=== PATIENT | male | born 1995 | race Asian ===

== ENCOUNTER 2017-01-02 12:05 | Emergency (ER) | payer MEDICAID ==
[2017-01-02 12:18] VITALS: BP 112/57; PULSE 79; RESP 18; TEMP 97.5; O2SAT 95
--- NOTE | 2017-01-02 12:36 | DX ---
Left Clavicle, Two Views Reason for examination: Pain following trauma. Findings: There is a comminuted, displaced and minimally angulated midshaft left clavicular fracture. No other fracture is seen. There is equivocal widening of the left AC joint. Impression: Displaced, comminuted and mildly angulated midshaft left clavicular fracture with equivoc al widening of the left AC joint.
--- NOTE | 2017-01-02 12:55 | EDPHY ---
H & P Time Seen by Provider: 01/02/17 12:43 HPI/ROS: CHIEF COMPLAINT: Left shoulder pain HISTORY OF PRESENT ILLNESS: 21-year-old male presents emergency department after he fell off his skateboard onto his left shoulder. Patient denies head strike, no loss of consciousness, no neck pain. He denies chest or abdominal pain. Pain with movement of this left arm, no previous injury to this arm, no numbness or tingling in this arm. Patient is [id number]. REVIEW OF SYSTEMS: A comprehensive 10 point review of systems is otherwise negative aside from elements mentioned in the history of present illness. Smoking Status: Never smoked Physical Exam: GEN: Awake, alert, oriented, no acute distress RESP: nl resp effort MSK: No C-spine tenderness to palpation, left clavicle with obvious deformity, tenderness to palpation, swelling, no skin tenting, superficial abrasion to posterior left shoulder, full range of motion of left elbow, sensation intact to light touch, normal deltoid sensation SKIN: Superficial abrasion to posterior left shoulder Constitutional: Initial Vital Signs Temperature (C) 36.4 C 01/02/17 12:16 Heart Rate 79 01/02/17 12:16 Respiratory Rate 18 01/02/17 12:16 Blood Pressure 112/57 L 01/02/17 12:16 O2 Sat (%) 95 01/02/17 12:16 O2 Delivery Mode Room Air Allergies/Adverse Reactions: No Known Allergies Allergy (Unverified 01/02/17 12:15) Home Medications: Medication Instructions Recorded oxyCODONE/APAP 5/325 [Percocet 1 - 2 tab PO Q6H PRN #20 tab 01/02/17 5/325] MDM/Departure - MDM Diagnostics: Left clavicle x-ray independently reviewed by me- Impression: Displaced, comminuted and mildly angulated midshaft left clavicular fracture with equivocal widening of the left AC joint. Dictated By: Compa Cardenas MD ED Course/Re-evaluation: Abrasion to posterior left shoulder cleaned, antibiotic ointment and Band-Aid placed. I placed a sling on this patient's left arm. I reviewed his discharge instructions and have given him a prescription for Percocet. Patient was given 1 ibuprofen and 1 Percocet prior to discharge. He has no questions, is given return precautions for neurovascular compromise. - Depart Disposition: Home, Routine, Self-Care Clinical Impression: Closed left clavicular fracture Qualifiers: Encounter type: initial encounter Clavicle location: shaft Fracture alignment: displaced Qualifier Code: (S42.022A) Displaced fracture of shaft of left clavicle, initial encounter for closed fracture Condition: Good Instructions: Clavicle Fracture (ED) Additional Instructions: Rest, ice, take 600mg of ibuprofen every 8 hours with food for 3-5 days as needed for pain. Wear sling for comfort. Take Percocet for severe pain. Follow up with orthopedist in the next 5 days. Return to the emergency department for any numbness, tingling, discoloration of you limb or other concerns. You have been prescribed a narcotic. This can cause drowsiness. Do not drive or operate any machinery while taking this. This can also cause constipation. Drink plenty of water, eat fiber and take stool softeners over the counter as needed. Prescriptions: oxyCODONE/APAP 5/325 [Percocet 5/325] 1 - 2 tab PO Q6H PRN #20 tab PRN Reason: Pain, Severe Referrals: Margie Ruvalcaba MD [Medical Doctor] - As per Instructions (Orthopedist on- call)
[2017-01-02] MEDS ORDERED: OXYCODONE/APAP 5/325 TAB PO ONE (13:04)
[2017-01-02] MEDS ORDERED: IBUPROFEN 600 MG TAB PO ONE (13:04)
== END 2017-01-02 13:28 | disposition home or self-care (01) ==
DX: S42.022A Displaced fracture of shaft of left clavicle, initial encounter for closed fracture (principal); V00.131A Fall from skateboard, initial encounter; Y99.8 Other external cause status; Y93.51 Activity, roller skating (inline) and skateboarding
CPT/HCPCS: A4565

== ENCOUNTER 2017-01-09 11:19 | Day surgery (SDC) | payer MEDICAID ==
[2017-01-09] MEDS ORDERED: LIDOCAINE 1% 5 ML SDV ID PRN (11:41)
[2017-01-09] MEDS ORDERED: LR 1,000 ML IV ONE (11:41)
[2017-01-09] MEDS ORDERED: BUPIVACAINE/EPI 0.5% 30 ML SDV ONE (12:14)
[2017-01-09] MEDS ORDERED: SKIN ADHESIVE (DERMABOND) 1 EACH TP ONE (12:14)
[2017-01-09] MEDS ORDERED: CEFAZOLIN 2 GM/DEXTROSE/100 ML BAG IV ONE (12:50)
[2017-01-09] MEDS ORDERED: MIDAZOLAM 2 MG/2 ML VIAL ONE (13:05)
[2017-01-09] MEDS ORDERED: fentaNYL 250 MCG/5 ML INJ ONE (13:19)
[2017-01-09] MEDS ORDERED: PROPOFOL 200 MG/20 ML VIAL ONE (13:20)
[2017-01-09] MEDS ORDERED: ceFAZolin 2 GM/DEXTROSE 100 ML IV ONE (13:30)
[2017-01-09] MEDS ORDERED: DEXAMETHASONE 4 MG/ML VIAL ONE (15:05)
[2017-01-09] MEDS ORDERED: LIDOCAINE 2% 5 ML SDV ONE (15:05)
[2017-01-09] MEDS ORDERED: fentaNYL 100 MCG/2 ML INJ ONE (15:32)
--- NOTE | 2017-01-09 15:36 | GOP ---
[f rep st] OPERATIVE REPORT DATE OF OPERATION: 01/09/2017 SURGEON: Kimo Sifuentes MD ELECTRONIC TESTER: None. Blood loss 5 mL. ANESTHESIA: General. PREOPERATIVE DIAGNOSIS: Left clavicle fracture. POSTOPERATIVE DIAGNOSIS: Left clavicle fracture. PROCEDURE PERFORMED: Open reduction, internal fixation left clavicle fracture. FINDINGS: Fracture comminution. SPECIMENS: None. INDICATIONS: This is a 21-year-old male who sustained a comminuted displaced clavicle fracture with tenting of the skin. Counseled risks and benefits of nonoperative treatment versus operative treatment. Informed consent was obtained. All questions were answered. Marked preoperatively. He was taken to the operative suite. Anesthesia was induced. He was positioned in a beach chair, sterilely prepped and draped in normal fashion. Bony prominences were padded. A time-out was performed verifying the site, side , location, with agreement of the team. 0.5% Marcaine with epinephrine was introduced into the skin. We made a skin incision over the clavicle and dissected down to the clavicle. This was quite comminuted and displaced. I was able to expose and mobilize the fracture fragments. I was able to pull this out to length and obtained visual reduction. Selected a distal plate given the location of the fracture and contoured this. I was then able to place the plate over the bone and held the reduction, and then I used a cortical screw distally to help bring this fragment up to the plate and affect the reduction even greater. Then, placed a cortical screw proximally to bring the bone to the plate. I checked x-rays, checked the length and rotational alignment, and I felt this was in good position. I put locking screws distally and a combination of locking and nonlocking screws proximally. I took this through range of motion it was stable. This was irrigated and closed with 0 Vicryl, 2-0 Vicryl, 3-0 Monocryl and Dermabond, was placed in a sterile dressing and taken to PACU in stable condition. DESCRIPTION OF PROCEDURE: IMPLANTS: Synthes distal clavicle plate with locking and nonlocking screws. COMPLICATIONS: None. DRAINS: None. CONDITION: Stable. /[id number]/MODL MTDD
== END 2017-01-09 17:05 | disposition home or self-care (01) ==
LOC: FSGY 11:19
PROVIDERS: ATTEND Orthopaedic Surgery
PROC: 0PSB04Z Reposition Left Clavicle with Internal Fixation Device, Open Approach (ICD-10-PCS; principal; 2017-01-09 13:00)
DX: S42.022A Displaced fracture of shaft of left clavicle, initial encounter for closed fracture (principal); V00.131A Fall from skateboard, initial encounter; Y93.51 Activity, roller skating (inline) and skateboarding
CPT/HCPCS: 23515; C1769; C1713; J0690; J1100; J2250; J2704; J3010

== ENCOUNTER 2019-03-07 15:18 | Emergency (ER) | payer MEDICAID ==
[2019-03-07] MEDS ORDERED: ASPIRIN 81 MG CHEWABLE TAB PO ONE (15:47)
--- NOTE | 2019-03-07 15:47 | EDPHY ---
H & P Time Seen by Provider: 03/07/19 15:32 HPI/ROS: CHIEF COMPLAINT: Chest pain, shortness of breath HISTORY OF PRESENT ILLNESS: Patient is a 22-year-old male presents emergency department with multiple complaints. The patient states he developed shortness of breath 2-3 days ago. Today he was walking at school when he felt suddenly fatigue. He also describes chest pressure. He describes mild left arm discomfort. He also had pain on his posterior calf bilaterally. All his symptoms have resolved at this point. Patient states he did lift weights yesterday and and the leg pain could be related to his exercise. He has had no recent travel. No family history of clots or coronary disease. REVIEW OF SYSTEMS: 10 systems were reveiwed and are negative with the exception of the elements mentioned in the history of present illness. Past Medical/Surgical History: Negative Past surgical history: Denies Social history: Patient is a student. He does not smoke. He denies drugs or alcohol. Smoking Status: Never smoked Physical Exam: Vitals noted GENERAL: Well-appearing, in no acute distress, alert. HEENT: Eyes normal to inspection, normal pharynx, no signs of dehydration. NECK: Normal, supple. RESPIRATORY: Clear to auscultation bilaterally, no rales, rhonchi or wheezing. CVS: Regular rate and rhythm, no rubs, murmurs, or gallops. ABDOMEN: Soft, nontender, nondistended, no organomegaly. BACK: Normal to inspection, no CVA tenderness. SKIN: Normal color, no rash, warm, dry. No pallor. EXTREMITIES: No pedal edema, no calf tenderness, no Homans sign or cords, no joint swelling. NEURO/PSYCH: Alert and oriented, normal mood and affect, normal motor sensory exam. Constitutional: Initial Vital Signs Temperature (C) 36.6 C 03/07/19 15:20 Heart Rate 84 03/07/19 15:20 Respiratory Rate 14 03/07/19 15:20 Blood Pressure 120/56 L 03/07/19 15:20 O2 Sat (%) 100 03/07/19 15:20 O2 Delivery Mode Room Air Allergies/Adverse Reactions: No Known Allergies Allergy (Unverified 01/02/17 12:15) Home Medications: Medication Instructions Recorded oxyCODONE/APAP 5/325 [Percocet 1 - 2 tab PO Q6H PRN #20 tab 02/10/17 5/325] Medical Decision Making - Diagnostics Imaging Results: Imaging Impressions Chest X-Ray 03/07/19 15:47 Impression: No acute pulmonary disease. ED Course/Re-evaluation: In the emergency department I discussed possible etiologies with the patient. I answered all his questions. IV was placed. Laboratory studies EKG and chest x-ray were obtained. Patient was having no symptoms in the emergency department EKG shows normal sinus rhythm, normal rate, normal axis, normal intervals. ST elevation, early repol Patient's CBC and chemistry unremarkable. Troponin is negative. D-dimer is negative. Chest x-ray: No acute disease I rechecked the patient. He is chest pain-free with no complaints. I discussed all results with the patient. I feel he was safe for discharge. I gave the patient warnings prior to leaving. Will return with worsening symptoms. Differential Diagnosis: My differential includes but is not limited to ACS, acute NM, dissection, aneurysm, pulmonary embolus, anxiety, hiatal hernia, GERD - Data Points Laboratory Results: Laboratory Results 03/07/19 15:49 03/07/19 15:49 03/07/19 03/07/19 03/07/19 15:53 15:49 15:49 WBC RBC Hgb Hct MCV MCH MCHC RDW Plt Count MPV Neut % (Auto) Lymph % (Auto) Wharton % (Auto) Eos % (Auto) Baso % (Auto) Nucleat RBC Rel Count Absolute Neuts (auto) Absolute Lymphs (auto) Absolute Monos (auto) Absolute Eos (auto) Absolute Basos (auto) Absolute Nucleated RBC Immature Gran % Immature Gran # D-Dimer 0.30 ug/mLFEU ug/mLFEU (0.00-0.50) Sodium 140 mEq/L mEq/L (135-145) Potassium 3.8 mEq/L mEq/L (3.5-5.2) Chloride 109 mEq/L mEq/L (97-110) Carbon Dioxide 18 mEq/l L mEq/l (22-31) Anion Gap 13 mEq/L mEq/L (6-14) BUN 17 mg/dL mg/dL (7-23) Creatinine 1.0 mg/dL mg/dL (0.7-1.3) Estimated GFR > 60 Glucose 84 mg/dL mg/dL (70-100) Calcium 10.0 mg/dL mg/dL (8.5-10.4) POC Troponin I 0.00 ng/mL ng/mL (0.00-0.08) 03/07/19 15:49 WBC 4.52 10^3/uL 10^3/uL (3.80-9.50) RBC 5.27 10^6/uL 10^6/uL (4.40-6.38) Hgb 16.3 g/dL g/dL (13.7-17.5) Hct 47.6 % % (40.0-51.0) MCV 90.3 fL fL (81.5-99.8) MCH 30.9 pg pg (27.9-34.1) MCHC 34.2 g/dL g/dL (32.4-36.7) RDW 11.9 % % (11.5-15.2) Plt Count 247 10^3/uL 10^3/uL (150-400) MPV 8.6 fL L fL (8.7-11.7) Neut % (Auto) 54.1 % % (39.3-74.2) Lymph % (Auto) 34.7 % % (15.0-45.0) Wharton % (Auto) 8.6 % % (4.5-13.0) Eos % (Auto) 1.5 % % (0.6-7.6) Baso % (Auto) 0.7 % % (0.3-1.7) Nucleat RBC Rel Count 0.0 % % (0.0-0.2) Absolute Neuts (auto) 2.44 10^3/uL 10^3/uL (1.70-6.50) Absolute Lymphs (auto) 1.57 10^3/uL 10^3/uL (1.00-3.00) Absolute Monos (auto) 0.39 10^3/uL 10^3/uL (0.30-0.80) Absolute Eos (auto) 0.07 10^3/uL 10^3/uL (0.03-0.40) Absolute Basos (auto) 0.03 10^3/uL 10^3/uL (0.02-0.10) Absolute Nucleated RBC 0.00 10^3/uL 10^3/uL (0-0.01) Immature Gran % 0.4 % % (0.0-1.1) Immature Gran # 0.02 10^3/uL 10^3/uL (0.00-0.10) D-Dimer Sodium Potassium Chloride Carbon Dioxide Anion Gap BUN Creatinine Estimated GFR Glucose Calcium POC Troponin I Medications Given: Discontinued Medications Aspirin (Aspirin) 324 mg PO EDNOW ONE Stop: 03/07/19 15:48 Last Admin: 03/07/19 16:02 Dose: 324 mg Point of Care Test Results: Chemistry 03/07/19 15:53 POC Troponin I 0.00 ng/mL ng/mL (0.00-0.08) Departure - Departure Disposition: Home, Routine, Self-Care Clinical Impression: Shortness of breath Chest pain Qualifiers: Chest pain type: other chest pain Qualified Code(s): R07.89 - Other chest pain Condition: Good Instructions: Chest Pain (ED), Dyspnea (ED) Additional Instructions: Return with increasing chest pain, shortness of breath, fever or any other concerns. You been given follow-up with [facility]. You can also follow up with [facility]. Referrals: [facility] [Provider Group] - 5-7 days, call for appt.
[2019-03-07 16:07] LABS: PLATELET COUNT 247 10^3/uL (150-400)
[2019-03-07 16:45] VITALS: BP 101/75
--- NOTE | 2019-03-11 14:05 | CPEKG ---
Test Reason : OPEN Blood Pressure : / mmHG Vent. Rate : 074 BPM Atrial Rate : 074 BPM P-R Int : 173 ms QRS Dur : 095 ms QT Int : 373 ms P-R-T Axes : 066 079 052 degrees QTc Int : [address] elev, probable normal early repol pattern Confirmed by Chandrika Myles ([id number]) on 03/11/2019 2:05:17 PM Referred By: Chandrika Myles Confirmed By:Chandrika Myles
== END 2019-03-07 17:05 | disposition home or self-care (01) ==
DX: R06.02 Shortness of breath (principal); R07.89 Other chest pain
CPT/HCPCS: 84484-ER